=== PATIENT | male | born 1980 | race Caucasian/White ===

== ENCOUNTER 2019-08-08 13:41 | Emergency (ER) | payer MEDICARE, SELFPAY ==
--- NOTE | ~2019-08-08 | XR_ITS ---
XR finger 4th RT min 2V 08/08/2019 14:16 INDICATION: Right fourth finger pain after injury PROCEDURE: 4 views right fourth finger COMPARISON: No prior studies for comparison. FINDINGS: Fracture, dislocation or subluxation is not identified. The soft tissues appear within norm al limits. No foreign bodies are identified. IMPRESSION: 1: NO ACUTE BONE OR JOINT ABNORMALITY IDENTIFIED. Reviewed, dictated and finalized at location A.
[2019-08-08 13:58] VITALS: BP 145/86; PULSE 69; RESP 16; TEMP 37; O2SAT 97
[2019-08-08] MEDS: KETOROLAC (*BKC) 60 MG/2 ML VIAL IM (14:23)
--- NOTE | 2019-08-08 14:51 | ED.UPPEXIN ---
HPI - Extremity Injury (Upper) General Chief Complaint: Extremity Injury, Upper Stated Complaint: hurt fourth finger on R hand Source: patient Mode of arrival: ambulatory Limitations: no limitations History of Present Illness HPI narrative: this is a 39-year-old gentleman presents to the emergency department after he jammed his finger while trying to catch a football injuring his right 4th finger it is swollen and has decreased range of motion secondary to swelling no other injuries has good movement although painful with range of motion due to pain and swelling. complaint: injury to: right and finger Other Extremity Injury: Right: fingers ( Fourth finger swelling) Other injuries: none Handedness: right Place: home Severity: moderate Severity scale (1-10): 5 Relieving factors: immobilization Exacerbating factors: movement of extremity Context: direct blow and sports-related injury Related Data Home Medications Medication Instructions Recorded Confirmed divalproex 500 mg PO BID 08/08/19 08/08/19 levetiracetam 750 mg PO BID 08/08/19 08/08/19 Allergies Allergy/AdvReac Type Severity Reaction Status Date / Time No Known Allergies Allergy Verified 08/08/19 13:57 Review of Systems Review of Systems: All systems reviewed & are unremarkable except as noted in HPI and below PMFSH Past Medical History Medical History History of seizures Exam Const: General: no acute distress and alert Orientation/consciousness: patient oriented x3 HENMT: Head: normal to inspection Eyes: Conjunctivae: conjunctivae normal Pupils: Equal, round and reactive pupils present Neck: Neck: normal visual inspection, no lymphadenopathy and no meningeal signs Chest: Chest palpation & inspection: normal inspection of the chest Resp: Effort & Inspection: normal respiratory effort Cardio: Rate: regular rate Rhythm: regular rhythm GI: GI Palp: Yes Soft to palpation Skin: General skin exam: normal color Rashes: no rashes Neuro: General: patient oriented x3, moves all extremities, no meningeal signs and no focal motor deficits Extrem: Other: tender swollen right 4th finger Psych: Mental Status: mental status grossly normal Course Course Emergency Course: reassessment evaluation of patient's pain has reduced after IM injection of Toradol Vital Signs Vital signs: Vital Signs Temperature 37.0 C 08/08/19 13:58 Pulse Rate 69 08/08/19 13:58 Respiratory Rate 16 08/08/19 13:58 Blood Pressure 145/86 H 08/08/19 13:58 Pulse Oximetry 97 08/08/19 13:58 Temperature 37.0 C 08/08/19 13:58 Pulse Rate 69 08/08/19 13:58 Respiratory Rate 16 08/08/19 13:58 Blood Pressure 145/86 H 08/08/19 13:58 Pulse Oximetry 97 08/08/19 13:58 Critical Care Time Critical Care Time Critical Care Time: No Discharge Plan Discharge Clinical Impression: Finger sprain Patient Disposition: Home, Self-Care Condition: Stable Instructions: Antibiotic Form, Finger Sprain (ED) Additional Instructions: continue ice to affected finger, take Aleve 600 mg twice daily with meals x5 days, follow-up with primary care physician if symptoms persist or worsen. Prescriptions: No Action divalproex 500 mg tablet,delayed release (DR/EC) 500 mg PO BID RF: 0 levetiracetam 750 mg tablet 750 mg PO BID RF: 0 Follow-up/Referrals: Lucius Salomon MD [Primary Care Provider] - Time of Disposition: 14:55
--- NOTE | 2019-08-08 15:00 | PC.NURSE ---
THERE WAS A VERBAL ORDER FOR METAL FINGER SPLINT
[2019-08-08 15:04] VITALS: RESP 15
== END 2019-08-08 15:05 | disposition home or self-care (01) ==
PROVIDERS: Emergency Provider Emergency Medicine; PCP Internal Medicine
DX: S63.614A Unspecified sprain of right ring finger, initial encounter (principal); W20.8XXA Other cause of strike by thrown, projected or falling object, initial encounter; Y93.79 Activity, other specified sports and athletics
CPT/HCPCS: 29125; 73140; 96372; 99283; J1885

== ENCOUNTER 2021-03-24 14:11 | Outpatient (CLI) | payer MEDICARE, SELFPAY ==
--- NOTE | ~2021-03-24 | XR_ITS ---
EXAMINATION: XR lumbar spine 2-3V DATE: 03/24/2021 14:54 INDICATION: Bilateral hip pain TECHNIQUE: Anteroposterior and lateral views of the lumbar spine, and cone-down lateral view of the l umbosacral junction were obtained. COMPARISON: None. FINDINGS: There is no fracture, dislocation, or subluxation. There is mild anterior wedging of the vi sualized thoracic and lumbar vertebral bodies, likely physiologic. There is mild loss of intervertebr al disc space height at L5-S1. Stones of the left kidney lower pole measure 11 mm and 3 mm. IMPRESSION: 1. No acute osseous abnormality of the lumbar spine. 2. Left nephrolithiasis. Reviewed, dictated and finalized at location F. [employer]
--- NOTE | ~2021-03-24 | XR_ITS ---
EXAMINATION: XR knee LT min 4V DATE: 03/24/2021 14:54 INDICATION: Left knee pain. TECHNIQUE: 4 views of left knee were obtained. COMPARISON: None. FINDINGS: Bone alignment is normal. No fracture. There is mild osteoarthritis of lateral compartment characterized by a tiny marginal osteophyte. No joint space. No knee joint effusion. IMPRESSION: 1. Mild left knee osteoarthritis. Reviewed, dictated and finalized at location B. [facility]
--- NOTE | ~2021-03-24 | XR_ITS ---
EXAMINATION: XR hip LT min 2V, XR hip RT min 2V DATE: 03/24/2021 14:53 INDICATION: Bilateral hip pain TECHNIQUE: 1. Anteroposterior , frog leg and cross-table lateral views of the left hip were obtained. 2. Anteroposterior , frog leg and cross-table lateral views of the right hip were obtained. COMPARISON: None. FINDINGS: Alignment is normal at the bilateral hips. Prominent decreased anterosuperiorly femoral head neck off set evident at both hips on the frog-leg lateral views which can predispose towards femoral acetabula r impingement. No fracture or suspected avascular necrosis. Bilateral hip joint spaces are normal. IMPRESSION: 1. Bilateral decreased femoral head neck offset which could predispose towards femoral acetabular imp ingement. Otherwise unremarkable bilateral hip radiographs. Reviewed, dictated and finalized at location A. N LINER IMPRESSION: 1. Bilateral decreased femoral head neck offset which could predispose towards femoral acetabular impingement. Otherwise unremarkable bilateral hip radiograph s.
[2021-03-24 14:34] LABS: Add Urine Microscopic? NO; Appearance Urine Clear (Clear); Basophils Absolute Auto 0.02 K/mm3 (0.00-0.10); Basophils Percent Auto 0.2 % (0.0-1.0); Bilirubin Urine Negative (Negative); Blood Urine Negative (Negative); Color Urine Yellow (Yellow); Eosinophils Absolute Auto 0.05 K/mm3 (0.02-0.50); Eosinophils Percent Auto 0.6 % (1.0-6.0); Glucose Urine UA Negative (Negative); Hematocrit 44.7 % (40.0-54.0); Hemoglobin 15.1 g/dL (14.0-18.0); Immature Granulocyte Absolute 0.01 K/mm3 (0.00-0.00); Immature Granulocyte Percent A 0.1 % (0.0-0.0); Ketones Urine Negative (Negative); Leukocyte Esterase Ur Negative (Negative); Lymphocytes Absolute Auto 3.73 K/mm3 (1.10-4.50); Mean Corpuscular HGB Conc 33.8 g/dL (32.0-36.0); Mean Corpuscular Hemoglobin 31.6 pg (27.0-31.0); Mean Corpuscular Volume 93.5 fL (78.0-102.0); Mean Platelet Volume 10.8 fl (8.7-11.0); Monocytes Absolute Auto 0.44 K/mm3 (0.10-0.90); Monocytes Percent Auto 5.3 % (2.0-11.0); Neutrophils Percent Auto 48.8 % (50.0-70.0); Nitrate Urine Negative (Negative); Platelet Count Result 222 K/mm3 (150-420); Protein Urine Negative (Negative); Red Blood Count 4.78 M/mm3 (4.70-6.10); Red Cell Distribution Width 11.9 % (11.6-14.4); Specific Grav Ur 1.025 (1.010-1.020); Urobilinogen Urine 0.2 mg/dL (0.2-1.0); White Blood Count 8.3 K/mm3 (4.8-10.8)
[2021-03-24 14:54] LABS: Alanine Aminotransferase 28 U/L (16-63); Albumin Level 3.7 g/dL (3.4-5.0); Alkaline Phosphatase 82 U/L (46-116); Anion Gap 11 mmol/L (8-16); Aspartate Amino Transferase 12 U/L (15-37); Bilirubin,Total 0.3 mg/dL (0.00-1.00); Blood Urea Nitrogen 12 mg/dL (7-18); CRP < 0.5 mg/dL (0.0-0.9); Calcium 9.2 mg/dL (8.5-10.1); Carbon Dioxide 27 mmol/L (21-32); Chloride 105 mmol/L (98-108); Estimated Glomerular Filt Rate > 60; Glucose 82 mg/dL (70-99); Osmolality Calculated 294 mOsm/kg (285-295); Potassium 4.2 mmol/L (3.5-5.1); Sodium 143 mmol/L (136-145); Total Protein 7.6 g/dL (6.4-8.2)
== END 2021-03-24 14:12 | disposition home or self-care (01) ==
LOC: CHSLAB 14:16
PROVIDERS: PCP Internal Medicine; Visit Provider Internal Medicine
DX: M25.562 Pain in left knee (principal); M25.552 Pain in left hip; M25.551 Pain in right hip
CPT/HCPCS: 36415; 72100; 73502; 73564; 80053; 81003; 85025; 86140

== ENCOUNTER 2022-05-26 06:38 | Emergency (ER) | payer OTHER, BC, MEDICARE, SELFPAY ==
--- NOTE | ~2022-05-26 | XR_ITS ---
XR hand RT 2V 05/26/2022 07:26 INDICATION: Crushing injury to the right hand PROCEDURE: 3 views right hand COMPARISON: 08/08/2019 FINDINGS: Fracture, dislocation or subluxation is not identified. The soft tissues appear within norm al limits. No foreign bodies are identified. IMPRESSION: 1: NO ACUTE BONE OR JOINT ABNORMALITY IDENTIFIED. Reviewed, dictated and finalized at location A.
[2022-05-26 06:40] VITALS: BP 125/92; PULSE 72; PULSE 74; RESP 20; TEMP 36.2; O2SAT 97; O2SAT 99
[2022-05-26] MEDS: KETOROLAC (*BKC) 60 MG/2 ML VIAL IM (07:24)
--- NOTE | 2022-05-26 07:51 | ED.UPPEXIN ---
HPI - Extremity Injury (Upper) General Chief Complaint: Extremity Injury, Upper Stated Complaint: Hand Injury Time Seen by Provider: 05/26/22 07:08 Source: patient and family Mode of arrival: ambulatory Limitations: no limitations History of Present Illness HPI narrative: this is a 41-year-old who presents with a injury to his right hand radiating into his forearm after he inadvertently while work smashed it with a pipe causing pain swelling and mildly decreased range of motion secondary to pain and swelling otherwise there is mild numbness and tingling with a brisk radial pulse has good range of motion with his fingers and hand and wrist no bruising. complaint: injury to: right Onset (ago): day(s) Other Extremity Injury: Right: fingers ( pain with swelling) and hand ( pain in with swelling) Related Data Home Medications Medication Instructions Recorded Confirmed divalproex 500 mg tablet,delayed 500 mg PO BID 08/08/19 05/26/22 release levetiracetam 750 mg tablet 750 mg PO BID 08/08/19 05/26/22 Allergies Allergy/AdvReac Type Severity Reaction Status Date / Time No Known Allergies Allergy Verified 08/08/19 13:57 Review of Systems Review of Systems: All systems reviewed & are unremarkable except as noted in HPI and below PMFSH Past Medical History Medical History (Updated 05/26/22 @ 07:56 by Xander Stafford MD) History of seizures Exam Const: General: healthy appearing Nutritional Appearance: well nourished Orientation/consciousness: patient oriented x3 Limitations: no limitations HENMT: Head: normal to inspection Eyes: Conjunctivae: conjunctivae normal EOM: EOMs intact bilaterally Direct Ophthalmoscopy: no photophobia Neck: Neck: normal visual inspection Chest: Chest palpation & inspection: normal inspection of the chest Resp: Effort & Inspection: normal respiratory effort Auscultation: clear to auscultation bilaterally Cardio: Rate: regular rate Rhythm: regular rhythm GI: GI Palp: Yes Soft to palpation Auscultation: normal bowel sounds : General: Yes bladder normal to palpation Back/Spine/Pelvis: Back: no CVA tenderness Skin: General skin exam: normal color Rashes: no rashes Wounds: no wounds Neuro: General: patient oriented x3 Cranial nerves: Yes Nystagmus not present Speech: normal speech Gait exam (Neuro): Normal gait present Extrem: General: normal to inspection Psych: Mental Status: mental status grossly normal Affect: normal affect Course Course Emergency Course: A x-rays reviewed with patient and family which were negative for fractures patient received a dose of 60mg IM Toradol which pain has improved. Vital Signs Vital signs: Vital Signs Temperature 36.2 C L 05/26/22 06:40 Pulse Rate 74 05/26/22 06:40 Respiratory Rate 20 05/26/22 06:40 Blood Pressure 125/92 H 05/26/22 06:40 Pulse Oximetry 99 05/26/22 06:40 Oxygen Delivery Room Air 05/26/22 06:40 Temperature 36.2 C L 05/26/22 06:40 Pulse Rate 72 05/26/22 06:40 Respiratory Rate 20 05/26/22 06:40 Blood Pressure 125/92 H 05/26/22 06:40 Pulse Oximetry 97 05/26/22 06:40 Oxygen Delivery Room Air 05/26/22 06:40 Critical Care Time Critical Care Time Critical Care Time: No Discharge Plan Discharge Clinical Impression: Finger sprain Qualifiers: Encounter type: initial encounter Finger: unspecified finger Qualified Code(s): S63.619A - Unspecified sprain of unspecified finger, initial encounter Patient Disposition: Home, Self-Care Condition: Stable Instructions: Antibiotic Form, Hand Sprain (ED) Additional Instructions: take medicine as prescribed and follow with primary care physician if symptoms persist or worsen. Prescriptions: New naproxen 500 mg tablet 500 mg PO BID PRN (Reason: pain) Qty: 14 0RF No Action divalproex 500 mg tablet,delayed release (DR/EC) 500 mg PO BID levetiracetam 750 mg tablet 750 mg PO BID F
[2022-05-26 08:04] VITALS: BP 132/90; PULSE 74; RESP 20; TEMP 36.8; O2SAT 98
== END 2022-05-26 08:22 | disposition home or self-care (01) ==
PROVIDERS: Emergency Provider Emergency Medicine; PCP Internal Medicine
DX: S63.611A Unspecified sprain of left index finger, initial encounter (principal); W22.8XXA Striking against or struck by other objects, initial encounter; Y99.0 Civilian activity done for income or pay
CPT/HCPCS: 73120; 96372; 99283; J1885

== ENCOUNTER 2024-02-07 12:17 | Emergency (ER) | payer OTHER, SELFPAY ==
--- NOTE | ~2024-02-07 | CT_ITS ---
EXAMINATION: CT abdomen pelvis wo con DATE: 02/07/2024 13:17 INDICATION: Upper abdominal pain TECHNIQUE: Computed tomography (CT) of the abdomen and pelvis was performed without intravenous contr ast. Automated exposure control and iterative reconstruction technique were employed. Exam dose: 383 .70 mGy-cm total exam DLP. COMPARISON: None. FINDINGS: Diagnostic imaging of the lung bases is very limited due to motion. No obvious consolidatio n is detected. Normal heart size. No pericardial or pleural effusion. Abdominal imaging is also somewhat limited due to motion artifact. No obvious hepatic, splenic, pancreatic, adrenal or renal space-occupying mass lesion is evident. There is a prominent nonobstructing calculus at the lower pole of the left kidney. No other urinary t ract calculus or hydronephrosis of either kidney is noted. The urinary bladder is evacuated and not o ptimally evaluated. Normal prostate gland. Normal caliber of the abdominal aorta. No intraperitoneal or retroperitoneal or pelvic mass lesion or adenopathy or ascites is noted. Mild to moderate size hiatal hernia. Normal appendix. No bowel obstruction or free air is evident. No intraperitoneal free air is detected . Normal caliber and mild calcification of the abdominal aorta. No intraperitoneal or retroperitoneal or pelvic mass lesion or adenopathy or ascites is noted. Bilateral small fat-containing inguinal hernias. Very small fat-containing umbilical hernia. There is prominent avascular necrosis of both femoral heads. IMPRESSION: Limited examination due to patient motion, incomplete cooperation Normal appendix Large nonobstructing lower pole left renal calculus Bilateral fat-containing hernias and very small fat-containing umbilical hernia Avascular necrosis of both femoral heads Reviewed, dictated and finalized at Location [facility]. Reviewed, dictated and finalized at location A. [employer]
--- NOTE | ~2024-02-07 | XR_ITS ---
EXAMINATION: XR chest 2V DATE: 02/07/2024 13:16 INDICATION: Chest pain TECHNIQUE: frontal and lateral views of the chest were obtained. COMPARISON: Chest radiograph dated 02/27/2018 FINDINGS: The lungs remain clear with no focal airspace opacities, pulmonary edema, pleural effusion or pneumot horax. The cardiomediastinal silhouette is normal. IMPRESSION: 1. No acute cardiopulmonary disease. Reviewed, dictated and finalized at location A. LOPMENT CHEMIST
--- NOTE | ~2024-02-07 | CT_ITS ---
EXAMINATION: CTA chest abdomen pelvis DATE: 02/07/2024 14:57 INDICATION: Chest and abdominal pain TECHNIQUE: Computed tomographic angiography (CTA) of the chest, abdomen, and pelvis was performed wit hout and with 100 mL Omnipaque-350 intravenous contrast. Volume-rendered 3D-reconstructions of the ao rta and large arteries were constructed by the technologist on a separate workstation. Automated expo sure control and iterative reconstruction technique were employed. The dose-length product was 478.95 mGy-cm. COMPARISON: 02/07/2024 FINDINGS: Chest: Lungs are clear with no pneumonia, pulmonary edema, pleural effusion or pneumothorax. Heart size is n ormal. No pericardial effusion. Thoracic aorta is normal in caliber with negligible plaque at the tho racic outlet and no dissection. Small sliding-type hiatal hernia. There is prominent edematous-appear ing wall thickening throughout the mid to distal esophagus suspicious for esophagitis likely related to reflux. No pathologically enlarged thoracic lymphadenopathy. Minimal to mild anterior wedging of a few vertebral bodies throughout the thoracic spine. Abdomen and pelvis: Diffuse hepatic steatosis. Gallbladder, spleen, pancreas, bilateral adrenal glands and right kidney a re normal. There are couple nonobstructing stones at lower pole of the left kidney the larger measuri ng 9 mm and the smaller measuring 2 mm. Bowels including the appendix are normal. Bladder is normal. Small bilateral fat-containing inguinal hernias. No free intraperitoneal gas or fluid. No pathologica lly enlarged abdominal or pelvic lymphadenopathy. Abdominal aorta is normal in caliber with no athero sclerotic plaque or dissection. Advanced osteonecrosis with collapse of portions of the articular kourtney faces at the bilateral femoral heads. IMPRESSION: 1. Small sliding-type hiatal hernia with prominent edematous-appearing wall thickening of the mid to distal esophagus suggestive of reflux esophagitis. 2. Normal caliber abdominal aorta with negligible plaque and no dissection. 3. Nonobstructing left nephrolithiasis. 4. 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 Reviewed, dictated and finalized at location A. [employer] [employer]ORD[employer] IMPRESSION: 1. Small sliding-type hiatal hernia with prominent edematous-appearing wall thi ckening of the mid to distal esophagus suggestive of reflux esophagitis. 2. Normal caliber abdominal aorta with negligible plaque and no dissection. 3. Nonobstructing left nephrolithiasis. 4. 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
[2024-02-07 12:23] VITALS: BP 144/98; PULSE 90; RESP 16; TEMP 36.6; O2SAT 97
--- NOTE | 2024-02-07 12:38 | ED.NAVMDI ---
HPI - Nausea/Vomiting/Diarrhea General Chief complaint: Nausea/Vomiting/Diarrhea Stated complaint: vomiting, indigestion Source: patient and family Mode of arrival: ambulatory Limitations: no limitations History of Present Illness HPI Narrative: patient is a 43-year-old male with midepigastric abdominal pain for the past 2 days. He went out the other night with his for alcohol beverages and had about a moderate to heavy alcohol consumption with lots of vomiting thereafter. Patient has not had a bowel movement a few days but that is normal for him. MD elicited complaint: nausea and vomiting Pertinent past history: alcohol abuse ( In the last few days) Description of vomiting: watery and resolved Description of diarrhea: other ( None) Associated nausea: Yes Associated abdominal pain: Yes Location of pain: epigastric Radiation: other ( none) Pain consistency: constant Severity: moderate Pain scale (0-10): 5 Quality: stabbing and sharp Exacerbating factors: alcohol intake Relieving factors: none Context: alcohol abuse Associated symptoms: nausea/vomiting Treatment prior to arrival: none Related Data Home Medications Medication Instructions Recorded Confirmed divalproex 500 mg tablet,delayed 500 mg PO BID 08/08/19 05/26/22 release levetiracetam 750 mg tablet 750 mg PO BID 08/08/19 05/26/22 Allergies Allergy/AdvReac Type Severity Reaction Status Date / Time No Known Allergies Allergy Verified 08/08/19 13:57 Review of Systems Review of Systems: All systems reviewed & are unremarkable except as noted in HPI and below Constitutional: Constitutional: Reports no additional constitutional complaints Eyes: Eyes: Reports no additional eye complaints ENT: Reports system reviewed and no additional complaints, except as documented Cardiovascular: Cardiovascular: Reports no additional cardiovascular complaints Respiratory: Respiratory: Reports no additional respiratory complaints Gastrointestinal: Gastrointestinal: Reports no additional gastrointestinal complaints Genitourinary: Genitourinary: Reports no additional male genitourinary complaints Musculoskeletal: Musculoskeletal: Reports no additional musculoskeletal complaints Integumentary/Breasts: Skin/Breast: Reports system reviewed and no additional complaints, except as docu Neurologic: Reports system reviewed and no additional complaints, except as documented Psychiatric: Psychiatric: Reports no additional psychiatric complaints Endocrine: Endocrine: Reports no additional endocrine complaints Hematologic/Lymphatic: Hematologic/Lymphatic: Reports no additional hematologic/lymphatic complaints Allergic/Immunologic: Allergic/Immunologic: Reports no additional allergic/immunologic complaints COUNT INCLUDES THE [facility] Past Medical History Medical History (Updated 02/07/24 @ 16:04 by Cirilo Garcia MD) History of seizures Exam Const: General: healthy appearing Nutritional Appearance: well nourished Orientation/consciousness: patient oriented x3 Limitations: no limitations HENMT: Head: normal to inspection Ears: external ears normal Face/Nose/Sinus: Normal external nose present Eyes: Conjunctivae: conjunctivae normal Cornea: corneas normal Pupils: Equal, round and reactive pupils present EOM: EOMs intact bilaterally Direct Ophthalmoscopy: no photophobia Neck: Neck: normal visual inspection Chest: Chest palpation & inspection: normal inspection of the chest Resp: Effort & Inspection: normal respiratory effort and not labored Auscultation: clear to auscultation bilaterally and no crackles Cardio: Rate: regular rate Rhythm: regular rhythm Heart sounds: no murmurs GI: Inspection: non-distended GI Palp: Yes Soft to palpation, Yes Tenderness to palpation present (GI) ( epigastrium), No Guarding due to palpation present (GI), No Rigid due to palpation, No Hernia present, No Palpable mass present and No Rebound tenderness present Auscultation: normal bowel sounds : General: Yes bladder normal to palpation Back/Spine/Pelvis: Back: no CVA tenderness Skin: General skin exam: normal color Rashes: no rashes Wounds: no wounds Neuro: General: patient oriented x3 Cranial nerves: Yes Nystagmus not present Speech: normal speech Gait exam (Neuro): Normal gait present Extrem: General: normal to inspection Psych: Mental Status: mental status grossly normal Affect: normal affect Attitude: cooperative Course Vital Signs Vital signs: Vital Signs Temperature 36.6 C 02/07/24 12:23 Pulse Rate 90 02/07/24 12:23 Respiratory Rate 16 02/07/24 12:23 Blood Pressure 144/98 H 02/07/24 12:23 Pulse Oximetry 97 02/07/24 12:23 Oxygen Delivery Room Air 02/07/24 12:23 Temperature 36.6 C 02/07/24 12:23 Pulse Rate 82 02/07/24 15:43 Respiratory Rate 20 02/07/24 15:43 Blood Pressure 128/76 02/07/24 15:43 Pulse Oximetry 97 02/07/24 15:43 Oxygen Delivery Room Air 02/07/24 15:43 MDM - Nausea/Vomiting/Diarrhea MDM Narrative Medical decision making narrative: patient is a 43-year-old male with epigastric pain. We will do an abdominal pain workup at this time. Lab Data Attestation: I reviewed the patient's lab results. 02/07/24 13:05 02/07/24 13:05 Labs: Lab Results 02/07/24 02/07/24 02/07/24 Range/Units 13:05 13:06 13:54 WBC 18.9 H (4.8-10.8) K/mm3 RBC 5.10 (4.70-6.10) M/mm3 Hgb 16.3 (14.0-18.0) g/dL Hct 45.7 (40.0-54.0) % MCV 89.6 (78.0-102.0) fL MCH 32.0 H (27.0-31.0) pg MCHC 35.7 (32-36) g/dL RDW 11.8 (11.6-14.4) % Plt Count 255 (150-420) K/mm3 MPV 10.3 (8.7-11.0) fl Immature Gran % (Auto) 0.4 H (0.0-0.0) % Neut % (Auto) 75.1 H (50.0-70.0) % Lymph % (Auto) 18.1 (18.0-42.0) % Bertie % (Auto) 6.1 (2.0-11.0) % Eos % (Auto) 0.1 L (1.0-6.0) % Baso % (Auto) 0.2 (0.0-1.0) % Lymph # (Auto) 3.41 (1.10-4.50) K/mm3 Bertie # (Auto) 1.15 H (0.10-0.90) K/mm3 Eos # (Auto) 0.02 (0.02-0.50) K/mm3 Baso # (Auto) 0.04 (0.00-0.10) K/mm3 Abs Immat Gran (auto) 0.08 H (0.00-0.00) K/mm3 Absolute Neuts (auto) 14.16 H (1.70-7.20) K/mm3 Absolute Nucleated RBC 0.00 (0.00-0.00) K/mm3 Nucleated RBC % 0.0 (0-0.0) % D-Dimer 0.89 H* (0.19-0.50) mg/L Sodium 140 (136-145) mmol/L Potassium 3.7 (3.5-5.1) mmol/L Chloride 99 (98-108) mmol/L Carbon Dioxide 30 (21-32) mmol/L Anion Gap 11 (4-12) mmol/L BUN 22 H (7-18) mg/dL Creatinine 1.14 (0.70-1.30) mg/dL Estim Creat Clear Calc 69 ml/min Estimated GFR > 60 (59 - ) Glucose 92 (70-99) mg/dL Calculated Osmolality 293 (285-295) mOsm/kg Lactic Acid 1.3 (0.4-2.0) mmol/L Calcium 10.0 (8.5-10.1) mg/dL Total Bilirubin 0.7 (0.00-1.00) mg/dL AST 10 L (15-37) U/L ALT 26 (16-63) U/L Alkaline Phosphatase 81 (46-116) U/L Troponin I 11.1 (0.00-60.4) ng/L Total Protein 7.4 (6.4-8.2) g/dL Albumin 3.9 (3.4-5.0) g/dL Lipase 19 (16-77) U/L Urine Color Yellow (Yellow) Urine Appearance Clear (Clear) Urine pH 7.0 (5.0-8.0) Ur Specific [place] 1.015 (1.010-1.020) Urine Protein Trace H (Negative) Urine Glucose (UA) Negative (Negative) Urine Ketones Trace H (Negative) Ur Blood (Man) Trace-intact H (Negative) Urine Nitrate Negative (Negative) Urine Bilirubin Negative (Negative) Urine Urobilinogen 0.2 (0.2-1.0) mg/dL Leukocyte Esterase Rfl Negative (Negative) WOJCIECH/UL Urine RBC None seen (0-2) /hpf Urine WBC None seen (0-3) /hpf Ur Squamous Epith Cells Rare (Few) /hpf Urine Bacteria Trace (None) /hpf Urine Mucus Few H /lpf Imaging Data Attestation: I personally reviewed and interpreted this imaging study as follows: Radiologist's impression: CT scan of the abdomen and pelvis without contrast was negative for acute process (we will do with contrast since he has a white count elevation) ECG Data EKG #1: Attestation: I personally reviewed and interpreted this ECG as follows: ECG completion date: 02/07/24 ECG completion time: 13:12 EKG Interpretation: normal rate, sinus rhythm, no ectopy, non-specific ST changes, normal QRS, normal QT and NL axis Discharge Plan Discharge Clinical Impression: Esophagitis Patient Disposition: Home, Self-Care Condition: Stable Instructions: Esophagitis (ED) Additional Instructions: Please follow-up with the primary doctor in the next week. Please see a GI specialist that can do an EGD to take further look into the esophagus after the acute esophagitis has resolved. Take the antacid for at least 3 weeks if not 1 month. Avoid pain medicine such as ibuprofen or similar medications. Tylenol is okay. Avoid alcohol consumption. Prescriptions: No Action divalproex 500 mg tablet,delayed release (DR/EC) 500 mg PO BID levetiracetam 750 mg tablet 750 mg PO BID naproxen 500 mg tablet 500 mg PO BID PRN (Reason: pain) Qty: 14 0RF Follow-up/Referrals: UNKNOWN,DOCTOR [Primary Care Provider] - Time of Disposition: 16:04
--- NOTE | 2024-02-07 13:07 | ECG_ITS ---
Test Date: 2024-02-07 13:06:59 Measurements Intervals [place] Rate: 89 P: 64 [place]: 136 QRS: 58 QRSD: 97 T: 59 QT: 337 QTc: 412 Interpretive Statements SINUS RHYTHM DELAYED PRECORDIAL R/S TRANSITION BASELINE WANDER- I, II, III, AVL, AVF, V4-V5 BORDERLINE ECG No previous ECG available for comparison Electronically Signed On 02-07-2024 13:21:50 [employer] by Josh Nassar D.O.
[2024-02-07 13:15] LABS: Basophils Absolute Auto 0.04 K/mm3 (0.00-0.10); Basophils Percent Auto 0.2 % (0.0-1.0); Eosinophils Absolute Auto 0.02 K/mm3 (0.02-0.50); Eosinophils Percent Auto 0.1 % (1.0-6.0); Hematocrit 45.7 % (40.0-54.0); Hemoglobin 16.3 g/dL (14.0-18.0); Immature Granulocyte Absolute 0.08 K/mm3 (0.00-0.00); Immature Granulocyte Percent A 0.4 % (0.0-0.0); Lymphocytes Absolute Auto 3.41 K/mm3 (1.10-4.50); Lymphocytes Percent Auto 18.1 % (18.0-42.0); Mean Corpuscular HGB Conc 35.7 g/dL (32-36); Mean Corpuscular Volume 89.6 fL (78.0-102.0); Mean Platelet Volume 10.3 fl (8.7-11.0); Monocytes Absolute Auto 1.15 K/mm3 (0.10-0.90); Monocytes Percent Auto 6.1 % (2.0-11.0); Neutrophils Absolute Auto 14.16 K/mm3 (1.70-7.20); Neutrophils Percent Auto 75.1 % (50.0-70.0); Platelet Count Result 255 K/mm3 (150-420); Red Cell Distribution Width 11.8 % (11.6-14.4); White Blood Count 18.9 K/mm3 (4.8-10.8)
[2024-02-07 13:27] LABS: Lactic Acid Reflex 1.3 mmol/L (0.4-2.0)
[2024-02-07 13:30] LABS: Lipase 19 U/L (16-77); Troponin I 11.1 ng/L (0.00-60.4)
[2024-02-07 13:33] LABS: Alanine Aminotransferase 26 U/L (16-63); Albumin Level 3.9 g/dL (3.4-5.0); Alkaline Phosphatase 81 U/L (46-116); Anion Gap 11 mmol/L (4-12); Aspartate Amino Transferase 10 U/L (15-37); Bilirubin,Total 0.7 mg/dL (0.00-1.00); Blood Urea Nitrogen 22 mg/dL (7-18); Carbon Dioxide 30 mmol/L (21-32); Chloride 99 mmol/L (98-108); Estimated CRCL calculation 69 ml/min; Estimated Glomerular Filt Rate > 60; Glucose 92 mg/dL (70-99); Osmolality Calculated 293 mOsm/kg (285-295); Potassium 3.7 mmol/L (3.5-5.1); Sodium 140 mmol/L (136-145); Total Protein 7.4 g/dL (6.4-8.2)
[2024-02-07 13:35] VITALS: BP 124/76; PULSE 82; RESP 20; O2SAT 98
[2024-02-07] MEDS: MAG HYDROX/ALUMINUM HYD/SIMETH 30 ML, PHENobarb/HYOSCY/ATROPINE/SCOP 32.4 MG, LIDOCAINE... PO (13:49)
[2024-02-07 14:01] LABS: Add Urine Microscopic? YES; Appearance Urine Clear (Clear); Bilirubin Urine Negative (Negative); Blood Urine Trace-intact (Negative); Color Urine Yellow (Yellow); Glucose Urine UA Negative (Negative); Ketones Urine Trace (Negative); Leukocyte Esterase Ur Negative LEU/UL (Negative); Nitrate Urine Negative (Negative); Protein Urine Trace (Negative); Specific Grav Ur 1.015 (1.010-1.020); Urobilinogen Urine 0.2 mg/dL (0.2-1.0)
[2024-02-07 14:05] LABS: Bacteria Urine Trace /hpf; Mucus Urine Few /lpf; RBC Urine None seen /hpf (0-2); Squamous Epithelial Cell Urine Rare /hpf (Few); WBC Urine None seen /hpf (0-3)
[2024-02-07 14:16] LABS: D Dimer 0.89 mg/L (0.19-0.50)
[2024-02-07] MEDS: SODIUM CHLORIDE 0.9% IV 1,000 ML 999 ML IV CONT (14:24)
[2024-02-07 15:41] VITALS: BP 106/66; PULSE 86; RESP 20; O2SAT 100
[2024-02-07 15:43] VITALS: BP 128/76; PULSE 82; RESP 20; O2SAT 97
[2024-02-07 16:14] VITALS: BP 106/72; PULSE 84; RESP 16; TEMP 36.8; O2SAT 96
[2024-02-07] MEDS: PANTOPRAZOLE SODIUM IV 40 MG VIAL IV PUSH (16:18)
== END 2024-02-07 16:25 | disposition home or self-care (01) ==
PROVIDERS: Emergency Provider Emergency Medicine
DX: K20.90 Esophagitis, unspecified without bleeding (principal)
CPT/HCPCS: 36415; 71046; 71275; 74174; 74176; 80053; 81001; 83605; 83690; 84484; 85025; 85380; 93005; 96361; 96374; 99284; A9270; J2470; J7030; Q9967